=== PATIENT | female | born 1990 | race African-American/Black ===

== ENCOUNTER 2022-05-22 00:39 | Emergency (ER) | payer SELFPAY ==
[~2022-05-22] VITALS: Ht 157.5 cm; Wt 79.4 kg
[2022-05-22 01:19] LABS: CLARITY,URINE CLEAR (CLEAR); COLOR,URINE YELLOW (YELLOW); KETONES,URINE NEGATIVE (NEGATIVE); LEUKOCYTE ESTERASE ,URINE NEGATIVE (NEGATIVE); NITRITE,URINE NEGATIVE (NEGATIVE); PROTEIN,URINE DIPSTICK NEGATIVE (NEGATIVE); URINE UROBILINOGEN 0.2 mg/dL (0.2 - 1)
[2022-05-22 01:22] LABS: BACTERIA,URINE FEW /HPF; EPITHELIAL CELLS,URINE MODERATE /LPF; RBC,URINE 0-5 /HPF (0-5); WBC,URINE (MAN) 0-5 /HPF (0-5)
[2022-05-22] MEDS ORDERED: CEFIXIME400 MG PO (01:28)
[2022-05-22] MEDS ORDERED: ZITHROMAX500 MG PO (01:28)
== END 2022-05-22 02:15 | disposition home or self-care (01) ==
LOC: ER 00:41
DX: A64 Unspecified sexually transmitted disease (principal)
CPT/HCPCS: 81001; 81025; 99283